=== PATIENT | male | born 1990 | race Caucasian/White ===

== ENCOUNTER 2021-11-18 09:55 | Outpatient (CLI) | payer MEDICAID, SELFPAY ==
[2021-11-18 14:51] LABS: SARS PCR* Negative SARS-CoV-2 (Negative)
== END 2021-11-18 09:56 | disposition home or self-care (01) ==
LOC: KYNREF 09:55
PROVIDERS: PCP Nurse Practitioner Family; Visit Provider Nurse Practitioner Family
DX: Z20.822 Contact with and (suspected) exposure to COVID-19 (principal); J02.9 Acute pharyngitis, unspecified
CPT/HCPCS: 87635

== ENCOUNTER 2022-08-11 10:31 | Outpatient (CLI) | payer OTHER, SELFPAY ==
[2022-08-11 15:37] LABS: Albumin* 4.3 g/dL (3.3-5.0)
[2022-08-11 15:38] LABS: Chloride* 93 mmol/L (96-114); Potassium* 4.7 mmol/L (3.6-5.1); Sodium* 131 mmol/L (135-149)
[2022-08-11 15:40] LABS: Bilirubin Total* 0.6 mg/dL (0.1-1.5); Carbon Dioxide* 24 mmol/L (20-32); Cholesterol* 242 mg/dL (90-199); Creatinine* 0.6 mg/dL (0.5-1.5); Estimated Glomerular Filt Rate 130 ml/min; Total Protein* 7.3 g/dL (6.0-8.3)
[2022-08-11 15:41] LABS: Alanine Aminotransferase* 152 U/L (4-50); Alkaline Phosphatase* 67 U/L (40-150); Aspartate Amino Transferase* 233 U/L (12-35); Blood Urea Nitrogen* 8 mg/dL (5-24); Calcium* 9.6 mg/dL (8.4-10.6); Glucose* 257 mg/dL (60-115); HDL Cholesterol* 31 mg/dL (>=40); LDL Cholesterol Calculated 147 mg/dL (<100); Triglycerides* 322 mg/dL (40-149)
== END 2022-08-11 10:32 | disposition home or self-care (01) ==
PROVIDERS: PCP Nurse Practitioner Family; Visit Provider Nurse Practitioner Family
DX: I10 Essential (primary) hypertension (principal); E78.5 Hyperlipidemia, unspecified
CPT/HCPCS: 80053; 80061

== ENCOUNTER 2023-03-29 14:25 | Outpatient (CLI) | payer OTHER, SELFPAY | END 2023-03-29 14:26 | disposition home or self-care (01) | PROVIDERS: PCP Family Medicine; Visit Provider Nurse Practitioner Family | DX: R80.9 Proteinuria, unspecified (principal); R30.0 Dysuria; R39.198 Other difficulties with micturition | CPT/HCPCS: 81015; 85025; 87086 ==

== ENCOUNTER 2024-08-08 12:31 | Outpatient (CLI) | payer BC, SELFPAY | END 2024-08-08 12:32 | disposition home or self-care (01) | PROVIDERS: PCP Family Medicine; Visit Provider Physician Assistant | DX: E11.621 Type 2 diabetes mellitus with foot ulcer (principal); L97.412 Non-pressure chronic ulcer of right heel and midfoot with fat layer exposed; L97.422 Non-pressure chronic ulcer of left heel and midfoot with fat layer exposed; I10 Essential (primary) hypertension; E66.9 Obesity, unspecified; Z68.43 Body mass index [BMI] 50.0-59.9, adult; Z79.4 Long term (current) use of insulin | CPT/HCPCS: 97597; G0463 ==

== ENCOUNTER 2024-08-17 13:55 | Outpatient (CLI) | payer BC, SELFPAY | END 2024-08-17 13:56 | disposition home or self-care (01) | LOC: WOUND 13:55 | PROVIDERS: PCP Family Medicine; Visit Provider Nurse Practitioner Family | DX: E11.621 Type 2 diabetes mellitus with foot ulcer (principal); L97.412 Non-pressure chronic ulcer of right heel and midfoot with fat layer exposed; L97.422 Non-pressure chronic ulcer of left heel and midfoot with fat layer exposed; I10 Essential (primary) hypertension; Z79.4 Long term (current) use of insulin; Z79.84 Long term (current) use of oral hypoglycemic drugs | CPT/HCPCS: 11042; 97597 ==

== ENCOUNTER 2024-08-24 13:58 | Outpatient (CLI) | payer BC, SELFPAY | END 2024-08-24 13:59 | disposition home or self-care (01) | LOC: WOUND 13:58 | PROVIDERS: PCP Family Medicine; Visit Provider Nurse Practitioner Family | DX: E11.621 Type 2 diabetes mellitus with foot ulcer (principal); L97.412 Non-pressure chronic ulcer of right heel and midfoot with fat layer exposed; L97.422 Non-pressure chronic ulcer of left heel and midfoot with fat layer exposed; Z79.4 Long term (current) use of insulin; Z79.84 Long term (current) use of oral hypoglycemic drugs | CPT/HCPCS: 11042 ==

== ENCOUNTER 2024-08-31 13:58 | Outpatient (CLI) | payer BC, SELFPAY | END 2024-08-31 13:59 | disposition home or self-care (01) | LOC: WOUND 13:58 | PROVIDERS: PCP Family Medicine; Visit Provider Physician Assistant | DX: E11.621 Type 2 diabetes mellitus with foot ulcer (principal); L97.412 Non-pressure chronic ulcer of right heel and midfoot with fat layer exposed; L97.422 Non-pressure chronic ulcer of left heel and midfoot with fat layer exposed; Z79.4 Long term (current) use of insulin; Z79.84 Long term (current) use of oral hypoglycemic drugs | CPT/HCPCS: 97597 ==

== ENCOUNTER 2024-09-07 08:23 | Outpatient (CLI) | payer BC, SELFPAY | END 2024-09-07 08:24 | disposition home or self-care (01) | LOC: WOUND 08:23 | PROVIDERS: PCP Family Medicine; Visit Provider Nurse Practitioner Family | DX: E11.621 Type 2 diabetes mellitus with foot ulcer (principal); L97.422 Non-pressure chronic ulcer of left heel and midfoot with fat layer exposed; L97.412 Non-pressure chronic ulcer of right heel and midfoot with fat layer exposed; Z79.4 Long term (current) use of insulin; Z79.84 Long term (current) use of oral hypoglycemic drugs | CPT/HCPCS: 11042; 97597 ==

== ENCOUNTER 2024-09-14 13:54 | Outpatient (CLI) | payer BC, SELFPAY | END 2024-09-14 13:55 | disposition home or self-care (01) | LOC: WOUND 13:54 | PROVIDERS: PCP Family Medicine; Visit Provider Nurse Practitioner Family | DX: E11.621 Type 2 diabetes mellitus with foot ulcer (principal); L97.412 Non-pressure chronic ulcer of right heel and midfoot with fat layer exposed; L97.422 Non-pressure chronic ulcer of left heel and midfoot with fat layer exposed; I10 Essential (primary) hypertension; Z79.4 Long term (current) use of insulin; Z79.84 Long term (current) use of oral hypoglycemic drugs | CPT/HCPCS: 11042 ==

== ENCOUNTER 2024-09-21 13:55 | Outpatient (CLI) | payer BC, SELFPAY ==
[2024-09-21 15:07] LABS: Basophils Absolute Auto 0.05 K/uL (0.00-0.30); Basophils Percent Auto 0.6 % (0.0-3.0); Eosinophils Absolute Auto 0.54 K/uL (0.00-0.50); Eosinophils Percent Auto 6.4 % (0.0-7.0); Hemoglobin* 11.8 gm/dL (13.5-17.5); Immature Granulocytes Abs Auto 0.11 K/uL (0.00-0.30); Immature Granulocytes Pct Auto 1.3 %; Lymphocytes Absolute Auto 2.49 K/uL (0.90-2.90); Lymphocytes Percent Auto 29.7 % (20-44); Mean Corpuscular HGB Conc 34 gm/dL (32-36); Mean Corpuscular Hemoglobin 29 pg (26-34); Mean Corpuscular Volume 87 fL (80-100); Monocytes Percent Auto 7.5 % (0.0-11.0); Neutrophils Absolute Auto 4.57 K/uL (1.7-7.0); Neutrophils Percent Auto 54.5 % (42.0-72.0); Platelet Count* 347 K/uL (140-440); RDW Coefficient of Variation % 13.6 % (11.5-15.5); Red Blood Count 4.03 m/uL (4.30-5.90); White Blood Count* 8.39 K/uL (4.50-11.00)
[2024-09-21 15:08] LABS: Chloride* 102 mmol/L (96-114); Sodium* 134 mmol/L (135-149)
[2024-09-21 15:09] LABS: Potassium* 5.4 mmol/L (3.6-5.1)
[2024-09-21 15:11] LABS: Blood Urea Nitrogen* 20 mg/dL (5-24); Estimated Glomerular Filt Rate 100 ml/min
[2024-09-21 15:12] LABS: Anion Gap 14 mEq/L (7-15); Calcium* 10.1 mg/dL (8.4-10.6); Carbon Dioxide* 18 mmol/L (20-32); Glucose* 156 mg/dL (60-115)
[2024-09-21 15:15] LABS: C Reactive Protein* 0.8 mg/dL (0.5-1.0)
[2024-09-21 15:21] LABS: Slide Review Reflex No
== END 2024-09-21 13:56 | disposition home or self-care (01) ==
LOC: WOUND 13:55
PROVIDERS: PCP Family Medicine; Visit Provider Nurse Practitioner Family
DX: E11.621 Type 2 diabetes mellitus with foot ulcer (principal); L97.422 Non-pressure chronic ulcer of left heel and midfoot with fat layer exposed; L97.412 Non-pressure chronic ulcer of right heel and midfoot with fat layer exposed; B95.1 Streptococcus, group B, as the cause of diseases classified elsewhere; I10 Essential (primary) hypertension; Z79.4 Long term (current) use of insulin; Z79.84 Long term (current) use of oral hypoglycemic drugs
CPT/HCPCS: 11042; 36415; 80048; 85025; 86140; 87070; 87186; 97597

== ENCOUNTER 2024-09-21 14:49 | Outpatient (CLI) | payer BC, SELFPAY ==
--- NOTE | 2024-09-21 15:15 | CRLHL7_ITS ---
For Patients: As a result of the Cures Act, medical imaging exams and procedure reports are released immediately into your electronic medical record. You may view this report before your referring provider. If you have questions, please contact your health care provider. Indication: NON HEALING WOUND Technique: Two views left calcaneus IMPRESSION: Posterior calcaneal spur. Soft tissue infection. No osteomyelitis or fracture. Dictated by Prem Bocanegra MD @ 09/24/2024 4:04:00 PM (Electronically Signed)
== END 2024-09-21 14:50 | disposition home or self-care (01) ==
LOC: RAD 14:50
PROVIDERS: PCP Family Medicine; Visit Provider Nurse Practitioner Family
DX: S91.302A Unspecified open wound, left foot, initial encounter (principal); M77.32 Calcaneal spur, left foot
CPT/HCPCS: 73650

== ENCOUNTER 2024-09-28 13:52 | Outpatient (CLI) | payer BC, SELFPAY | END 2024-09-28 13:53 | disposition home or self-care (01) | LOC: WOUND 13:52 | PROVIDERS: PCP Family Medicine; Visit Provider Nurse Practitioner Family | DX: E11.621 Type 2 diabetes mellitus with foot ulcer (principal); I10 Essential (primary) hypertension; L97.422 Non-pressure chronic ulcer of left heel and midfoot with fat layer exposed; Z79.4 Long term (current) use of insulin; Z79.84 Long term (current) use of oral hypoglycemic drugs | CPT/HCPCS: 11042 ==

== ENCOUNTER 2024-10-05 13:51 | Outpatient (CLI) | payer BC, SELFPAY | END 2024-10-05 13:52 | disposition home or self-care (01) | LOC: WOUND 13:51 | PROVIDERS: PCP Family Medicine; Visit Provider Nurse Practitioner Family | DX: E11.621 Type 2 diabetes mellitus with foot ulcer (principal); L97.422 Non-pressure chronic ulcer of left heel and midfoot with fat layer exposed; I10 Essential (primary) hypertension; Z79.84 Long term (current) use of oral hypoglycemic drugs | CPT/HCPCS: 11042 ==

== ENCOUNTER 2024-10-12 13:15 | Outpatient (CLI) | payer BC, SELFPAY | END 2024-10-12 13:16 | disposition home or self-care (01) | LOC: WOUND 13:15 | PROVIDERS: PCP Family Medicine; Visit Provider Physician Assistant | DX: E11.621 Type 2 diabetes mellitus with foot ulcer (principal); L97.422 Non-pressure chronic ulcer of left heel and midfoot with fat layer exposed; Z79.4 Long term (current) use of insulin; Z79.84 Long term (current) use of oral hypoglycemic drugs | CPT/HCPCS: 97597 ==

== ENCOUNTER 2024-10-19 13:52 | Outpatient (CLI) | payer BC, SELFPAY | END 2024-10-19 13:53 | disposition home or self-care (01) | LOC: WOUND 13:52 | PROVIDERS: PCP Family Medicine; Visit Provider Nurse Practitioner Family | DX: E11.621 Type 2 diabetes mellitus with foot ulcer (principal); L97.422 Non-pressure chronic ulcer of left heel and midfoot with fat layer exposed; I10 Essential (primary) hypertension; Z79.4 Long term (current) use of insulin; Z79.84 Long term (current) use of oral hypoglycemic drugs | CPT/HCPCS: 11042 ==

== ENCOUNTER 2024-10-26 13:47 | Outpatient (CLI) | payer BC, SELFPAY | END 2024-10-26 13:48 | disposition home or self-care (01) | LOC: WOUND 13:47 | PROVIDERS: PCP Family Medicine; Visit Provider Nurse Practitioner Family | DX: E11.621 Type 2 diabetes mellitus with foot ulcer (principal); L97.422 Non-pressure chronic ulcer of left heel and midfoot with fat layer exposed; Z79.4 Long term (current) use of insulin; Z79.84 Long term (current) use of oral hypoglycemic drugs | CPT/HCPCS: 97597 ==

== ENCOUNTER 2024-11-02 13:51 | Outpatient (CLI) | payer BC, SELFPAY | END 2024-11-02 13:52 | disposition home or self-care (01) | LOC: WOUND 13:51 | PROVIDERS: PCP Family Medicine; Visit Provider Nurse Practitioner Family | DX: E11.621 Type 2 diabetes mellitus with foot ulcer (principal); L97.422 Non-pressure chronic ulcer of left heel and midfoot with fat layer exposed; I10 Essential (primary) hypertension; L84 Corns and callosities; Z79.4 Long term (current) use of insulin | CPT/HCPCS: 11042; 11055 ==

== ENCOUNTER 2024-11-09 13:51 | Outpatient (CLI) | payer BC, SELFPAY | END 2024-11-09 13:52 | disposition home or self-care (01) | LOC: WOUND 13:51 | PROVIDERS: PCP Family Medicine; Visit Provider Nurse Practitioner Family | DX: E11.621 Type 2 diabetes mellitus with foot ulcer (principal); I10 Essential (primary) hypertension; L97.422 Non-pressure chronic ulcer of left heel and midfoot with fat layer exposed; Z79.4 Long term (current) use of insulin; Z79.84 Long term (current) use of oral hypoglycemic drugs | CPT/HCPCS: 97597 ==

== ENCOUNTER 2024-11-16 13:48 | Outpatient (CLI) | payer BC, SELFPAY | END 2024-11-16 13:49 | disposition home or self-care (01) | LOC: WOUND 13:48 | PROVIDERS: PCP Family Medicine; Visit Provider Nurse Practitioner Family | DX: E11.621 Type 2 diabetes mellitus with foot ulcer (principal); L97.422 Non-pressure chronic ulcer of left heel and midfoot with fat layer exposed; I10 Essential (primary) hypertension; Z79.84 Long term (current) use of oral hypoglycemic drugs | CPT/HCPCS: 97597 ==

== ENCOUNTER 2024-11-23 13:49 | Outpatient (CLI) | payer BC, SELFPAY | END 2024-11-23 13:50 | disposition home or self-care (01) | LOC: WOUND 13:49 | PROVIDERS: PCP Family Medicine; Visit Provider Nurse Practitioner Family | DX: Z09 Encounter for follow-up examination after completed treatment for conditions other than malignant neoplasm (principal); Z86.31 Personal history of diabetic foot ulcer; I10 Essential (primary) hypertension; E66.9 Obesity, unspecified; L84 Corns and callosities; Z68.43 Body mass index [BMI] 50.0-59.9, adult; Z79.4 Long term (current) use of insulin | CPT/HCPCS: G0463 ==

== ENCOUNTER 2025-01-03 08:23 | Outpatient (CLI) | payer BC, SELFPAY | END 2025-01-03 08:24 | disposition home or self-care (01) | LOC: WOUND 08:24 | PROVIDERS: PCP Family Medicine; Visit Provider Nurse Practitioner Family | DX: E11.621 Type 2 diabetes mellitus with foot ulcer (principal); I10 Essential (primary) hypertension; L97.428 Non-pressure chronic ulcer of left heel and midfoot with other specified severity; Z79.4 Long term (current) use of insulin; E66.09 Other obesity due to excess calories; Z68.43 Body mass index [BMI] 50.0-59.9, adult | CPT/HCPCS: 11042; G0463 ==

== ENCOUNTER 2025-01-11 13:51 | Outpatient (CLI) | payer BC, SELFPAY | END 2025-01-11 13:52 | disposition home or self-care (01) | LOC: WOUND 13:51 | PROVIDERS: PCP Family Medicine; Visit Provider Nurse Practitioner Family | DX: E11.621 Type 2 diabetes mellitus with foot ulcer (principal); L97.428 Non-pressure chronic ulcer of left heel and midfoot with other specified severity; I10 Essential (primary) hypertension; E66.09 Other obesity due to excess calories; Z68.43 Body mass index [BMI] 50.0-59.9, adult; Z79.4 Long term (current) use of insulin; Z79.84 Long term (current) use of oral hypoglycemic drugs | CPT/HCPCS: G0463 ==

== ENCOUNTER 2025-01-18 13:48 | Outpatient (CLI) | payer BC, SELFPAY | END 2025-01-18 13:49 | disposition home or self-care (01) | LOC: WOUND 13:48 | PROVIDERS: PCP Family Medicine; Visit Provider Nurse Practitioner Family | DX: E11.621 Type 2 diabetes mellitus with foot ulcer (principal); L97.428 Non-pressure chronic ulcer of left heel and midfoot with other specified severity; I10 Essential (primary) hypertension; Z79.4 Long term (current) use of insulin; Z79.84 Long term (current) use of oral hypoglycemic drugs | CPT/HCPCS: 11042 ==

== ENCOUNTER 2025-01-25 14:06 | Outpatient (CLI) | payer BC, SELFPAY | END 2025-01-25 14:07 | disposition home or self-care (01) | LOC: WOUND 14:07 | PROVIDERS: PCP Family Medicine | DX: E11.621 Type 2 diabetes mellitus with foot ulcer (principal); L97.412 Non-pressure chronic ulcer of right heel and midfoot with fat layer exposed; L97.422 Non-pressure chronic ulcer of left heel and midfoot with fat layer exposed; Z79.4 Long term (current) use of insulin; Z79.84 Long term (current) use of oral hypoglycemic drugs | CPT/HCPCS: 11042; 97597; G0463 ==

== ENCOUNTER 2025-02-08 13:50 | Outpatient (CLI) | payer BC, SELFPAY | END 2025-02-08 13:51 | disposition home or self-care (01) | LOC: WOUND 13:50 | PROVIDERS: PCP Family Medicine; Visit Provider Nurse Practitioner Family | DX: E11.621 Type 2 diabetes mellitus with foot ulcer (principal); L97.422 Non-pressure chronic ulcer of left heel and midfoot with fat layer exposed; Z79.4 Long term (current) use of insulin; Z79.84 Long term (current) use of oral hypoglycemic drugs | CPT/HCPCS: 11042 ==

== ENCOUNTER 2025-02-15 13:50 | Outpatient (CLI) | payer BC, SELFPAY | END 2025-02-15 13:51 | disposition home or self-care (01) | LOC: WOUND 13:50 | PROVIDERS: PCP Family Medicine; Visit Provider Nurse Practitioner Family | DX: E11.621 Type 2 diabetes mellitus with foot ulcer (principal); L97.412 Non-pressure chronic ulcer of right heel and midfoot with fat layer exposed; L97.422 Non-pressure chronic ulcer of left heel and midfoot with fat layer exposed; Z79.4 Long term (current) use of insulin; Z79.84 Long term (current) use of oral hypoglycemic drugs | CPT/HCPCS: G0463 ==

== ENCOUNTER 2025-03-01 13:51 | Outpatient (CLI) | payer BC, SELFPAY | END 2025-03-01 13:52 | disposition home or self-care (01) | LOC: WOUND 13:51 | PROVIDERS: PCP Family Medicine; Visit Provider Nurse Practitioner Family | DX: E11.621 Type 2 diabetes mellitus with foot ulcer (principal); L97.422 Non-pressure chronic ulcer of left heel and midfoot with fat layer exposed; L97.412 Non-pressure chronic ulcer of right heel and midfoot with fat layer exposed; I10 Essential (primary) hypertension; E66.09 Other obesity due to excess calories; Z68.43 Body mass index [BMI] 50.0-59.9, adult; Z79.84 Long term (current) use of oral hypoglycemic drugs | CPT/HCPCS: 97597 ==

== ENCOUNTER 2025-03-15 10:00 | Outpatient (CLI) | payer BC, SELFPAY | END 2025-03-15 10:01 | disposition home or self-care (01) | LOC: WOUND 10:00 | PROVIDERS: PCP Family Medicine; Visit Provider Nurse Practitioner Family | DX: E11.621 Type 2 diabetes mellitus with foot ulcer (principal); L97.411 Non-pressure chronic ulcer of right heel and midfoot limited to breakdown of skin; L97.421 Non-pressure chronic ulcer of left heel and midfoot limited to breakdown of skin; Z79.84 Long term (current) use of oral hypoglycemic drugs | CPT/HCPCS: 97597 ==